=== PATIENT | male | born 1985 | race Caucasian/White ===

== ENCOUNTER 2017-08-07 20:27 | Emergency (ER) | payer MEDICAID ==
[~2017-08-07] VITALS: Ht 175.3 cm; Wt 70.5 kg
[~2017-08-07 20:27] MED LIST: ALBU8.5H4 IH; CYCL-1 PO; HYDR-569 PO; HYDR1TAB PO; NO HOME MEDS; PRED20TA PO
[2017-08-07] MEDS ORDERED: fentaNYL/PF 50MCG/1 ML 2ML syringe IV ONE (20:45)
[2017-08-07] MEDS ORDERED: bacitracin 15gm ointment TP ONE (20:50)
[2017-08-07] MEDS ORDERED: morphine 4 MG/ML inj SYRINge IV ONE ×2 (20:50→23:15)
[2017-08-07] MEDS ORDERED: TETanus/Pertussis (Acell)/Diphther VAC/PF (Tdap-Adult) 0.5ml syringe IM ONE (20:50)
[2017-08-07] MEDS ORDERED: proCHLORperazine 10 MG/2 ml inj IV ONE (20:50)
[2017-08-07] MEDS ORDERED: ceFAZolin 1GM/D5W- ADD-VANTAGE 50 ML IV ONE (20:50)
[2017-08-07] MEDS ORDERED: ondansetron/PF 4mg/2ml inj IV ONE (21:00)
[2017-08-07 21:03] LABS: BASOPHILS # (AUTO) 0.1 X10'3 (0-0.2); BASOPHILS % (AUTO) 1.2 % (0-1); EOSINOPHILS # (AUTO) 0.4 X10'3 (0-0.9); EOSINOPHILS % (AUTO) 3.1 % (0-6); HEMATOCRIT 41.6 % (42.0-52.0); HEMOGLOBIN 14.5 g/dl (14.0-17.9); LYMPHOCYTES # (AUTO) 4.6 X10'3 (1.1-4.8); LYMPHOCYTES % (AUTO) 36.8 % (21-51); MEAN CORPUSCULAR HEMOGLOBIN 30.7 PG (27.0-31.0); MEAN CORPUSCULAR VOLUME 87.7 FL (78-98); MEAN PLATELET VOLUME 7.8 FL (7.4-10.4); MONOCYTES # (AUTO) 0.8 X10'3 (0-0.9); MONOCYTES % (AUTO) 6.7 % (2-12); NEUTROPHILS # (AUTO) 6.5 X10'3 (1.8-7.7); NEUTROPHILS % (AUTO) 52.2 % (42-75); PLATELET COUNT 303 X10'3 (140-440); RED BLOOD COUNT 4.74 X10'6 (4.70-6.10); RED CELL DISTRIBUTION WIDTH 12.7 % (11.5-14.5); WHITE BLOOD COUNT 12.4 X10'3 (4.5-11.0)
[2017-08-07 23:01] LABS: CLARITY,URINE Clear (Clear); COLOR,URINE Yellow (Yellow); GLUCOSE, URINE 100 mg/dl (Neg); KETONES,URINE Negative (Neg); LEUKOCYTE ESTERASE ,URINE Negative (Neg); NITRITES, URINE Negative (Neg); OCCULT BLOOD,URINE Negative (Neg); PROTEIN,URINE Negative (Neg); UROBILINOGEN,URINE 0.2 E.U/dL (0.2-1.0)
[2017-08-07 23:11] LABS: UA COLLECTION TYPE CLN CATCH MIDSTREAM
[2017-08-07 23:11] LABS: PARTIAL THROMBOPLASTIN TIME 23 SECONDS (22-32); PROTHROMBIN TIME 10.8 SECONDS (9.0-12.0)
[2017-08-07 23:13] LABS: URINE AMPHETAMINE SCREEN NEGATIVE (Neg); URINE BARBITUATE SCREEN NEGATIVE (Neg); URINE BENZODIAZEPINES SCREEN NEGATIVE (Neg); URINE CANNABINOID SCREEN POSITIVE (Neg); URINE COCAINE SCREEN POSITIVE (Neg); URINE METHADONE SCREEN NEGATIVE (Neg); URINE OPIATE SCREEN POSITIVE (Neg); URINE PHENCYCLIDINE SCREEN NEGATIVE (Neg)
[2017-08-07 23:17] LABS: ALANINE AMINOTRANSFERASE 33 U/L (12-78); ALBUMIN/GLOBULIN RATIO 1.2 (1.1-1.5); ALKALINE PHOSPHATASE 79 IU/L (46-116); ANION GAP 9 (8-16); ASPARTATE AMINO TRANSFERASE 27 U/L (10-37); BILIRUBIN,TOTAL 0.4 MG/DL (0.1-1.0); BLOOD UREA NITROGEN 21 MG/DL (7-18); BUN/CREATININE RATIO 16.9 (5.4-32.0); CALCIUM 8.7 MG/DL (8.5-10.1); CHLORIDE 104 MMOL/L (99-107); CREATININE 1.24 MG/DL (0.60-1.10); GLUCOSE 147 MG/DL (70-104); POTASSIUM 3.6 MMOL/L (3.5-5.1); SODIUM 140 MMOL/L (135-145); TOTAL CARBON DIOXIDE 27.4 MMOL/L (24-32); TOTAL PROTEIN 7.4 G/DL (6.4-8.2); eGFR 69 ML/MIN
[2017-08-07 23:21] LABS: ETHANOL < 0.010 GM/DL (0.0-0.010)
[2017-08-07] MEDS ORDERED: LIDOcaine 1.5% w/epinephrine 1:200,000 5ml ampul IJ ONE (23:40)
[2017-08-07] MEDS ORDERED: CEPH250T PO (23:43)
[2017-08-08] MEDS ORDERED: HYDR-569 PO (00:21)
[2017-08-08 00:32] VITALS: BP 137/79
== END 2017-08-08 00:33 | disposition home or self-care (01) ==
LOC: ER 20:27
DX: S63.267A Dislocation of metacarpophalangeal joint of left little finger, initial encounter (principal); S62.305A Unspecified fracture of fourth metacarpal bone, left hand, initial encounter for closed fracture; S81.012A Laceration without foreign body, left knee, initial encounter; S40.212A Abrasion of left shoulder, initial encounter; S60.812A Abrasion of left wrist, initial encounter; S60.413A Abrasion of left middle finger, initial encounter; S70.312A Abrasion, left thigh, initial encounter; F14.10 Cocaine abuse, uncomplicated; F12.10 Cannabis abuse, uncomplicated; J45.909 Unspecified asthma, uncomplicated; Z86.14 Personal history of Methicillin resistant Staphylococcus aureus infection; Z56.0 Unemployment, unspecified; Z88.2 Allergy status to sulfonamides; Z79.899 Other long term (current) drug therapy; V29.49XA Motorcycle driver injured in collision with other motor vehicles in traffic accident, initial encounter; Y93.89 Activity, other specified; Y92.89 Other specified places as the place of occurrence of the external cause; Y99.8 Other external cause status
CPT/HCPCS: 12004; 26605; 36415; 71045; 72170; 73030; 73060; 73080; 73130; 73560; 80053; 80305; 80320; 81003; 85025; 85610; 85730; 86885; 86900; 86901; 93005; 96365; 96375; 96376; 99285; A6255; A6449; J0690; J0780; J2270; J3010; J3490

== ENCOUNTER 2017-08-16 13:13 | Outpatient (CLI) | payer MEDICAID ==
[~2017-08-16 13:13] MED LIST changes: +CEPH250T PO
[2017-08-16 13:14] VITALS: BP 127/70
== END 2017-08-16 13:40 | disposition home or self-care (01) ==
LOC: ORTHO 13:13
PROVIDERS: ATTEND Nurse Practitioner Family
DX: S62.354A Nondisplaced fracture of shaft of fourth metacarpal bone, right hand, initial encounter for closed fracture (principal); S63.259A Unspecified dislocation of unspecified finger, initial encounter; F12.90 Cannabis use, unspecified, uncomplicated; J45.909 Unspecified asthma, uncomplicated; Z88.2 Allergy status to sulfonamides; X58.XXXA Exposure to other specified factors, initial encounter; Y93.89 Activity, other specified; Y92.89 Other specified places as the place of occurrence of the external cause; Y99.8 Other external cause status
CPT/HCPCS: 29125; 99213

== ENCOUNTER 2017-08-30 13:32 | Outpatient (CLI) | payer MEDICAID ==
[2017-08-30 13:34] VITALS: BP 132/87
== END 2017-08-30 14:15 | disposition home or self-care (01) ==
LOC: ORTHO 13:32
PROVIDERS: ATTEND Nurse Practitioner Family
DX: S62.355 Nondisplaced fracture of shaft of fourth metacarpal bone, left hand (principal); S63.29 Dislocation of distal interphalangeal joint of finger; J45.909 Unspecified asthma, uncomplicated; Z88.2 Allergy status to sulfonamides; X58.XXXD Exposure to other specified factors, subsequent encounter
CPT/HCPCS: 29125; 73130; 99213

== ENCOUNTER 2017-10-25 12:59 | Emergency (ER) | payer MEDICAID ==
[~2017-10-25] VITALS: Ht 172.7 cm; Wt 66.0 kg
[2017-10-25 13:13] VITALS: BP 128/71
[2017-10-25] MEDS ORDERED: ondansetron 4mg rapidly disintigrating tab PO ONE (14:55)
[2017-10-25 15:14] LABS: BASOPHILS % (AUTO) 0.4 % (0-1); EOSINOPHILS # (AUTO) 0.2 X10'3 (0-0.9); EOSINOPHILS % (AUTO) 2.3 % (0-6); HEMATOCRIT 48.1 % (42.0-52.0); HEMOGLOBIN 16.7 g/dl (14.0-17.9); LYMPHOCYTES # (AUTO) 1.4 X10'3 (1.1-4.8); LYMPHOCYTES % (AUTO) 18.3 % (21-51); MEAN CORPUSCULAR HEMOGLOBIN 30.9 PG (27.0-31.0); MEAN CORPUSCULAR HGB CONC 34.8 % (33.0-36.5); MEAN CORPUSCULAR VOLUME 88.8 FL (78-98); MEAN PLATELET VOLUME 7.7 FL (7.4-10.4); MONOCYTES # (AUTO) 0.9 X10'3 (0-0.9); MONOCYTES % (AUTO) 11.4 % (2-12); NEUTROPHILS # (AUTO) 5.1 X10'3 (1.8-7.7); NEUTROPHILS % (AUTO) 67.6 % (42-75); PLATELET COUNT 242 X10'3 (140-440); RED BLOOD COUNT 5.42 X10'6 (4.70-6.10); WHITE BLOOD COUNT 7.5 X10'3 (4.5-11.0)
[2017-10-25 15:31] LABS: ALANINE AMINOTRANSFERASE 22 U/L (12-78); ALBUMIN 4.2 G/DL (3.4-5.0); ALBUMIN/GLOBULIN RATIO 1.1 (1.1-1.5); ALKALINE PHOSPHATASE 103 IU/L (46-116); ANION GAP 8 (8-16); ASPARTATE AMINO TRANSFERASE 20 U/L (10-37); BILIRUBIN,TOTAL 0.7 MG/DL (0.1-1.0); BLOOD UREA NITROGEN 13 MG/DL (7-18); BUN/CREATININE RATIO 11.1 (5.4-32.0); CALCIUM 9.6 MG/DL (8.5-10.1); CHLORIDE 100 MMOL/L (99-107); CREATININE 1.17 MG/DL (0.60-1.10); GLUCOSE 78 MG/DL (70-104); LIPASE 117 U/L (73-393); POTASSIUM 3.7 MMOL/L (3.5-5.1); SODIUM 136 MMOL/L (135-145); TOTAL CARBON DIOXIDE 28.2 MMOL/L (24-32); TOTAL PROTEIN 7.9 G/DL (6.4-8.2); eGFR 74 ML/MIN
[2017-10-25] MEDS ORDERED: ONDA4TAB9 SL (15:35)
[2017-10-25] MEDS ORDERED: FAMO40TA73 PO (15:35)
== END 2017-10-25 16:02 | disposition home or self-care (01) ==
LOC: ER 12:59
DX: K52.9 Noninfective gastroenteritis and colitis, unspecified (principal); J45.909 Unspecified asthma, uncomplicated; Z86.14 Personal history of Methicillin resistant Staphylococcus aureus infection; F12.90 Cannabis use, unspecified, uncomplicated; Z88.2 Allergy status to sulfonamides; Z79.899 Other long term (current) drug therapy; Z56.0 Unemployment, unspecified
CPT/HCPCS: 36415; 80053; 83690; 85025; 99284

== ENCOUNTER 2023-10-15 10:44 | Emergency (ER) | payer MEDICAID, OTHER ==
[~2023-10-15] VITALS: Ht 162.6 cm; Wt 62.7 kg
[~2023-10-15 10:44] MED LIST changes: -CEPH250T PO; +FAMO40TA73 PO; +HYDR-4383 PO; -HYDR-569 PO
[2023-10-15 11:05] VITALS: TEMP 98
[2023-10-15] MEDS ORDERED: HYDR-3965 PO (13:39)
[2023-10-15] MEDS: HYDROcodone/acetaminophen 5mg/325mg tablet PO ONE (14:09)
[2023-10-15 14:12] VITALS: BP 119/63; PULSE 60; RESP 16; O2SAT 99
== END 2023-10-15 14:22 | disposition home or self-care (01) ==
LOC: ER 10:45
DX: S20.411A Abrasion of right back wall of thorax, initial encounter (principal); R07.81 Pleurodynia; J45.909 Unspecified asthma, uncomplicated; F12.90 Cannabis use, unspecified, uncomplicated; Z72.89 Other problems related to lifestyle; Z56.0 Unemployment, unspecified; Z88.2 Allergy status to sulfonamides; Z79.899 Other long term (current) drug therapy; Z79.52 Long term (current) use of systemic steroids; V19.9XXA Pedal cyclist (driver) (passenger) injured in unspecified traffic accident, initial encounter; Y93.89 Activity, other specified; Y92.89 Other specified places as the place of occurrence of the external cause; Y99.8 Other external cause status; M54.2 Cervicalgia
CPT/HCPCS: 71101; 72125; 99284; L0172